=== PATIENT | male | born 1970 | race Caucasian/White ===

== ENCOUNTER 2024-03-15 12:12 | Emergency (ER) | payer BC, SELFPAY ==
[2024-03-15 12:29] VITALS: BP 160/87; PULSE 44; RESP 16; TEMP 37.1; O2SAT 99
[2024-03-15] MEDS: TETRACAINE HCL 0.5% OPHTH SOLN 4 ML BTL 1 DROP EACH EYE (12:37)
[2024-03-15] MEDS: DACRIOSE EYE IRRIGATION 118 ML BOTTLE EACH EYE (12:37)
[2024-03-15] MEDS: FLUORESCEIN SOD 1 MG/STRIP EACH EYE (12:37)
[2024-03-15 12:41] VITALS: BP 160/87; PULSE 44; RESP 16; TEMP 37.1; O2SAT 99
--- NOTE | 2024-03-15 12:48 | ED.EYEPROB ---
HPI - Eye Problem General Chief complaint: Eye Problems Stated complaint: right eye irritation foreign body Time Seen by Provider: 03/15/24 12:34 Source: patient and RN notes reviewed Mode of arrival: ambulatory Limitations: no limitations History of Present Illness HPI Narrative: Patient presents today complaining of a piece of wood to the right eye approximately hour and a half prior to exam. He was using a circular saw to some would. States he was wearing some safety goggles, but removed them as they were fogging up. He used half a bottle of Visine prior to arrival. Does report some vision changes Related Data Allergies Allergy/AdvReac Type Severity Reaction Status Date / Time amoxicillin Allergy Hives Verified 03/15/24 12:27 meperidine [From Demerol] AdvReac Other Verified 03/15/24 12:27 Review of Systems Review of Systems: CONSTITUTIONAL: Denies body aches, fever, chills, or sweats. EYES: + foreign body to right eye with vision changes ENT: Denies rhinorrhea, congestion, sore throat, or otalgia. CARDIOVASCULAR: Denies chest pain, palpitations, or edema. RESPIRATORY: Denies cough or dyspnea. GASTROINTESTINAL: Denies abdominal pain, nausea, vomiting, or diarrhea. GENITOURINARY: Denies dysuria or hematuria. SKIN: Denies rash, itching, or wounds. MUSCULOSKELETAL: Denies back pain, joint pain, or myalgia. NEUROLOGIC: Denies headache, numbness, tingling, or weakness. PSYCH: Denies depression or anxiety. PMFSH Comments At time of signature, I have reviewed and agree with nursing past medical, surgical, social and family history unless otherwise noted. Please see nursing chart for further information. There is no relevant family history pertinent to the presenting complaint Exam Narrative: GENERAL: Well-appearing, well-nourished, and in no acute distress. HEAD: Normocephalic, atraumatic. EYES: EOMI. Right pupil is dilated significantly, but reactive to light. Left pupil normal. Right eye with large corneal abrasion. See procedure note. ENT: Mucous membranes pink and moist. NECK: Normal AROM. CHEST: No respiratory distress. EXTREMITIES: Normal range of motion. No edema. SKIN: Warm, dry, no rash. Capillary refill normal. Normal skin turgor. NEURO: No focal deficits. Alert and oriented x3. Gait steady. PSYCH: Normal affect. No signs of depression or anxiety. Course Course Level of Care: Express Care Visit Vital Signs Vital signs: Vital Signs Temperature 98.8 F 03/15/24 12:29 Pulse Rate 44 L 03/15/24 12:29 Respiratory Rate 16 03/15/24 12:29 Blood Pressure 160/87 H 03/15/24 12:29 Pulse Oximetry 99 03/15/24 12:29 Oxygen Delivery Room Air 03/15/24 12:29 Temperature 98.8 F 03/15/24 12:41 Pulse Rate 44 L 03/15/24 12:41 Respiratory Rate 16 03/15/24 12:41 Blood Pressure 160/87 H 03/15/24 12:41 Pulse Oximetry 99 03/15/24 12:41 Oxygen Delivery Room Air 03/15/24 12:41 Reviewed Procedures Other Procedure Procedure 1: Other Procedure: Right eye was anesthetized with 1 drop of tetracaine and anesthesia was achieved. The eye was flushed with eye wash. Patient states he can see clearly after eye was thoroughly flushed. Lid was inverted and examined. Moistened Qtip was used to sweep underneath the upper eyelid with 0 foreign bodies resulting. Cornea was dyed with fluorescein and 1 large abrasions noted to the 12 o'clock position of the iris. Pt tolerated procedure well. MDM - Eye Problem MDM Narrative Medical decision making narrative: Patient has large corneal abrasion. Prescription for Polytrim sent to pharmacy. Anticipatory guidance given. Differential Diagnosis Differential diagnosis: Likely corneal abrasion and corneal ulcer Critical Care Time Critical Care Time Critical Care Time: No Discharge Plan Discharge Clinical Impression: Abrasion of right cornea Qualifiers: Encounter type: initial encounter Qualified Code(s): S05.01XA -
== END 2024-03-15 13:01 | disposition home or self-care (01) ==
PROVIDERS: Emergency Provider Nurse Practitioner
DX: S05.01XA Injury of conjunctiva and corneal abrasion without foreign body, right eye, initial encounter (principal); X58.XXXA Exposure to other specified factors, initial encounter
CPT/HCPCS: 99213; A9270; G0463